=== PATIENT | female | born 1980 | race Caucasian/White ===

== ENCOUNTER 2018-10-01 16:27 | Emergency (ER) | payer OTHER ==
[2018-10-01 17:46] LABS: Absolute Lymphocytes (CBC) 2.8 K/uL (0.7-4.9); Absolute Monocytes 0.7 K/uL (0.1-1.3); Absolute Neutrophil 5.1 K/uL (1.8-8.0); Basophils % 0.3 % (0-1.3); Eosinophils % 1.6 % (0-4.4); Lymphocytes % 31.6 % (15.3-44.8); MCH 29.5 pg (27.0-35.0); MPV 7.7 fL (7.6-11.3); RBC Red Blood Cell Count 4.65 M/uL (3.86-4.86)
[2018-10-01] MEDS ORDERED: MEPERIDINE HCL 25 MG/0.5 ML ONE ×2 (17:52→20:13)
[2018-10-01] MEDS ORDERED: PROMETHAZINE 25 MG/ML VIAL ONE (17:52)
[2018-10-01 17:57] LABS: Urine Blood 2+ (NEG); Urine Glucose NEGATIVE (NEG); Urine Protein NEGATIVE (NEG)
[2018-10-01 18:08] LABS: ALT/SGPT 21 U/L (12-78); AST/SGOT 13 U/L (15-37); Albumin 4.1 g/dL (3.4-5.0); Alkaline Phosphatase 84 U/L (45-117); BUN Blood Urea Nitrogen 11 mg/dL (7-18); Bicarbonate 24 mmol/L (21-32); Bilirubin Direct < 0.1 mg/dL (0-0.2); Bilirubin Total 0.2 mg/dL (0.2-1.0); Glucose Level 99 mg/dL (74-106); Lipase 120 U/L (73-393); Potassium 3.8 mmol/L (3.5-5.1); Protein, Total 7.7 g/dL (6.4-8.2); Sodium Level 138 mmol/L (136-145)
--- NOTE | 2018-10-01 18:13 | RAD REPORT ---
EXAM DESCRIPTION: RAD - Chest Single View - 10/01/2018 6:00 pm CLINICAL HISTORY: DYSPNEA Chest pain. COMPARISON: No comparisons FINDINGS: Portable technique limits examination quality. The lungs are grossly clear. The heart is normal in size. No displaced fractures. IMPRESSION: No acute intrathoracic process suspected.
--- NOTE | 2018-10-01 18:15 | RAD REPORT ---
EXAM DESCRIPTION: US - Abdomen Exam Limited - 10/01/2018 6:08 pm CLINICAL HISTORY: RUQ;Abd pain COMPARISON: No comparisons FINDINGS: The gallbladder demonstrates no gallstones. No pericholecystic fluid or gallbladder wall t hickening. The common bile duct is normal measuring 4 mm. The liver demonstrates no findings of intrahepatic biliary dilatation. IMPRESSION: Unremarkable examination.
--- NOTE | 2018-10-01 19:36 | RAD REPORT ---
EXAM DESCRIPTION: CTAbdomen Pelvis W Contrast - 10/01/2018 7:19 pm CLINICAL HISTORY: Abdominal pain. iv only;Abd pain COMPARISON: No comparisons TECHNIQUE: Biphasic CT imaging of the abdomen and pelvis was performed with 100 ml non-ionic IV cont rast. All CT scans are performed using dose optimization technique as appropriate and may include automated exposure control or mA/KV adjustment according to patient size. FINDINGS: The lung bases are clear. The liver, spleen, pancreas, adrenal glands and kidneys are within normal limits. No bowel obstruction, free air, free fluid or abscess. The appendix is normal. No evidence of signi ficant lymphadenopathy. No suspicious bony findings. IMPRESSION: No acute intra-abdominal or pelvic finding.
--- NOTE | 2018-10-01 20:28 | EDPHYS ---
Physician Documentation [facility] Name: Juliana Parks Age: 38 yrs Sex: Female : 1980 Arrival Date: 10/01/2018 Time: 16:31 Bed 15 Private MD: Ayad Leigh B ED Physician Fidencio Mccloud HPI: 10/01 18:57 This 38 yrs old Female presents to ER via Ambulatory with complaints of jr8 abdominal pain. 18:57 The patient presents with abdominal pain in the right upper quadrant. Onset: The jr8 symptoms/episode began/occurred acutely, today. The symptoms radiate to right back. Associated signs and symptoms: Pertinent positives: nausea. The symptoms are described as stabbing. Modifying factors: The symptoms are alleviated by nothing, the symptoms are aggravated by nothing. Severity of pain: At its worst the pain was moderate in the emergency department the pain is unchanged. The patient has not experienced similar symptoms in the past. The patient has not recently seen a physician. 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 - Social history:: Smoking status: Patient/guardian denies using tobacco. - Ebola Screening: : Patient negative for fever greater than or equal to 101.5 degrees Fahrenheit, and additional compatible Ebola Virus Disease symptoms Patient denies exposure to infectious person Patient denies travel to an Ebola-affected area in the 21 days before illness onset. ROS: 18:57 Eyes: Negative for injury, pain, redness, and discharge, ENT: Negative for injury, jr8 pain, and discharge, Neck: Negative for injury, pain, and swelling, Cardiovascular: Negative for chest pain, palpitations, and edema, Respiratory: Negative for shortness of breath, cough, wheezing, and pleuritic chest pain, Back: Negative for injury and pain, MS/Extremity: Negative for injury and deformity, Skin: Negative for injury, rash, and discoloration, Neuro: Negative for headache, weakness, numbness, tingling, and seizure. 18:57 Abdomen/GI: Positive for abdominal pain, nausea, Negative for vomiting, diarrhea, constipation, abdominal cramps, abdominal distension. Exam: 18:57 Eyes: Pupils equal round and reactive to light, extra-ocular motions intact. Lids and jr8 lashes normal. Conjunctiva and sclera are non-icteric and not injected. Cornea within normal limits. Periorbital areas with no swelling, redness, or edema. ENT: Nares patent. No nasal discharge, no septal abnormalities noted. Tympanic membranes are normal and external auditory canals are clear. Oropharynx with no redness, swelling, or masses, exudates, or evidence of obstruction, uvula midline. Mucous membranes moist. Neck: Trachea midline, no thyromegaly or masses palpated, and no cervical lymphadenopathy. Supple, full range of motion without nuchal rigidity, or vertebral point tenderness. No Meningismus. Cardiovascular: Regular rate and rhythm with a normal S1 and S2. No gallops, murmurs, or rubs. Normal PMI, no JVD. No pulse deficits. Respiratory: Lungs have equal breath sounds bilaterally, clear to auscultation and percussion. No rales, rhonchi or wheezes noted. No increased work of breathing, no retractions or nasal flaring. Back: No spinal tenderness. No costovertebral tenderness. Full range of motion. Skin: Warm, dry with normal turgor. Normal color with no rashes, no lesions, and no evidence of cellulitis. MS/ Extremity: Pulses equal, no cyanosis. Neurovascular intact. Full, normal range of motion. Neuro: Awake and alert, GCS 15, oriented to person, place, time, and situation. Cranial nerves II-XII grossly intact. Motor strength 5/5 in all extremities. Sensory grossly intact. Cerebellar exam normal. Normal gait. 18:57 Abdomen/GI: Inspection: abdomen appears normal, Bowel sounds: active, all quadrants, Palpation: soft, in all quadrants, moderate abdominal tenderness, in the right upper quadrant, mass, is not appreciated, rebound tenderness, is not appreciated, voluntary guarding, is not appreciated, involuntary guarding, is not appreciated, no appreciated organomegaly, Indicators: McBurney's point is tender, Schroeder's sign is negative, Rovsing's sign is negative, Liver: tenderness, is not appreciated. Vital Signs: 17:01 BP 144 / 95; Pulse 81; Resp 24; Temp 97.8(TE); Pulse Ox 98% on R/A; Weight 74.84 kg; ph Height 5 ft. 3 in. (160.02 cm); Pain 6/10; 19:00 BP 112 / 72; Pulse 72; Resp 16; Pulse Ox 96% on R/A; jb4 20:11 BP 116 / 77; Pulse 79; Resp 18; Pulse Ox 98% on R/A; mt 17:01 Body Mass Index 29.23 (74.84 kg, 160.02 cm) ph MDM: 17:15 Patient medically screened. jr8 20:15 Differential diagnosis: bowel obstruction, cholecystitis, Cholelithiasis, jr8 diverticulitis, gastritis, gastroesophageal reflux disease, Irritable bowel syndrome, myocardia ischemia or infarction, non-specific abd pain, pancreatitis, Peptic Ulcer Disease, Perf. Duodenal Ulcer, Perf. Gastric Ulcer, Pyelonephritis, Ureterolithiasis. Data reviewed: vital signs, nurses notes, lab test result(s), EKG, radiologic studies, CT scan, plain films, ultrasound, and as a result, I will discharge patient. Data interpreted: Pulse oximetry: on room air is 98 %. Interpretation: normal. Counseling: I had a detailed discussion with the patient and/or guardian regarding: the historical points, exam findings, and any diagnostic results supporting the discharge/admit diagnosis, lab results, radiology results, the need for outpatient follow up, a pharmacy aide, to return to the emergency department if symptoms worsen or persist or if there are any questions or concerns that arise at home. Response to treatment: the patient's symptoms have markedly improved after treatment. Special discussion: Based on the patient's Hx, exam, and Dx evaluation, there is no indication for emergent surgery or inpatient Tx. It is understood by the patient/guardian that if the Sx's persist or worsen they need to return immediately for re-evaluation. 10/01 17:15 Order name: Basic Metabolic Panel; Complete Time: 18:10/01 17:15 Order name: CBC with Diff; Complete Time: 18:10/01 17:15 Order name: Creatinine for Radiology; Complete Time: 18:10/01 17:15 Order name: Hepatic Function; Complete Time: 18:10/01 17:15 Order name: Lipase; Complete Time: 18:10/01 17:30 Order name: Urine Dipstick--Ancillary (enter results); Complete Time: 18:09 10/01 17:15 Order name: IV Saline Lock; Complete Time: 18:12 [facility] [place] 10/01 17:30 Order name: Urine --Ancillary (enter results); Complete Time: 18:09 10/01 17:31 Order name: XRAY Chest (1 view); Complete Time: 18:25 [facility] [place] 10/01 17:32 Order name: US Abdomen Limited; Complete Time: 18:25 [facility] [place] 10/01 18:57 Order name: CT Abd/Pelvis - W/Contrast; Complete Time: 19:40 [facility] [place] 10/01 17:15 Order name: Labs collected and sent; Complete Time: 18:12 [facility] [place] 10/01 17:15 Order name: Urine Test (obtain specimen); Complete Time: 17:39 [facility] [place] 10/01 17:15 Order name: Urine Dipstick-Ancillary (obtain specimen); Complete Time: 17:39 [facility] [place] 10/01 18:25 Order name: EKG - Nurse/Tech; Complete Time: 18:58 [facility] [place] Administered Medications: 17:52 Drug: Demerol 25 mg Route: IVP; Site: right forearm; rv 21:06 Follow up: Response: No adverse reaction; Pain is decreased jb4 17:52 Drug: Promethazine 12.5 mg Route: IVP; Site: right antecubital; rv 21:05 Follow up: Response: No adverse reaction; Nausea is decreased jb4 20:10 Drug: Demerol 25 mg Route: IVP; Site: right antecubital; jb4 21:05 Follow up: Response: No adverse reaction; Pain is decreased jb4 Disposition: 10/02 07:41 Co-signature as Attending Physician, Fidencio Mccloud MD I agree with the assessment and kdr plan of care. Disposition: 10/01/18 20:28 Discharged to Home. Impression: Right upper quadrant pain. - Condition is Stable. - Discharge Instructions: Abdominal Pain, Adult, Gallbladder Nuclear Scan. - Prescriptions for Tylenol- Codeine #3 300-30 mg Oral Tablet - take 2 tablet by ORAL route every 6 hours As needed; 30 tablet. Zofran 4 mg Oral Tablet - take 1 tablet by ORAL route every 12 hours As needed; 20 tablet. - Medication Reconciliation Form, Thank You Letter, Antibiotic Education, Prescription Opioid Use form. - Follow up: César Ayala MD; When: 2 - 3 days; Reason: Recheck today's complaints, Continuance of care, Re-evaluation by your physician. - Problem is new. - Symptoms have improved. Signatures: Dispatcher [employer] EDMS Fidencio Mccloud MD MD [facility] Brayan Alves PA PA jr8 Kathy Concepcion RN RN Kt Jamison RN RN jb4 Med Young RN RN rv Corrections: (The following items were deleted from the chart) 10/01 21:06 20:28 10/01/2018 20:28 Discharged to Home. Impression: Right upper quadrant pain. jb4 Condition is Stable. Forms are Medication Reconciliation Form, Thank You Letter, Antibiotic Education, Prescription Opioid Use. Follow up: César Ayala; When: 2 - 3 days; Reason: Recheck today's complaints, Continuance of care, Re-evaluation by your physician. Problem is new. Symptoms have improved. jr8
--- NOTE | 2018-10-01 20:28 | ER ---
Nurse's Notes [facility] Name: Juliana Parks Age: 38 yrs Sex: Female : 1980 Arrival Date: 10/01/2018 Time: 16:31 Bed 15 Private MD: Ayad Leigh B Diagnosis: Right upper quadrant pain Presentation: 10/01 17:00 Presenting complaint: Patient states: RUQ pain that began around 1400, radiates around ph to rib area, denies N/V/D or fever. Transition of care: patient was not received from another setting of care. Onset of symptoms was October 01, 2018. Risk Assessment: Do you want to hurt yourself or someone else? Patient reports no desire to harm self or others. Initial Sepsis Screen: Does the patient meet any 2 criteria? No. Patient's initial sepsis screen is negative. Does the patient have a suspected source of infection? No. Patient's initial sepsis screen is negative. Care prior to arrival: None. 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 - Social history:: Smoking status: Patient/guardian denies using tobacco. - Ebola Screening: : Patient negative for fever greater than or equal to 101.5 degrees Fahrenheit, and additional compatible Ebola Virus Disease symptoms Patient denies exposure to infectious person Patient denies travel to an Ebola-affected area in the 21 days before illness onset. Screenin:30 Abuse screen: Denies threats or abuse. Denies injuries from another. Nutritional rv screening: No deficits noted. Tuberculosis screening: No symptoms or risk factors identified. Fall Risk None identified. Assessment: 18:12 General: Appears in no apparent distress. uncomfortable, Behavior is calm, cooperative. rv Pain: Complains of pain in RIGHT SIDE. Neuro: Level of Consciousness is awake, alert, obeys commands, Oriented to person, place, time, situation. Cardiovascular: Capillary refill < 3 seconds. Respiratory: Airway is patent. GI: No signs and/or symptoms were reported involving the gastrointestinal system. : No signs and/or symptoms were reported regarding the genitourinary system. EENT: No signs and/or symptoms were reported regarding the EENT system. Derm: Skin is intact. Musculoskeletal: No signs and/or symptoms reported regarding the musculoskeletal system. 19:15 Reassessment: Patient appears in no apparent distress at this time. Patient and/or jb4 family updated on plan of care and expected duration. Pain level reassessed. Patient is alert, oriented x 3, equal unlabored respirations, skin warm/dry/pink. PT to CT via wheelchair. Cardiovascular: Patient's skin is warm and dry. Respiratory: Airway is patent Respiratory effort is even, unlabored, Respiratory pattern is regular, symmetrical. 20:45 Reassessment: Patient appears in no apparent distress at this time. Patient and/or jb4 family updated on plan of care and expected duration. Pain level reassessed. Patient is alert, oriented x 3, equal unlabored respirations, skin warm/dry/pink. discussed D/c, F/u with pt, Questions answered, denies further questions or concerns. Vital Signs: 17:01 BP 144 / 95; Pulse 81; Resp 24; Temp 97.8(TE); Pulse Ox 98% on R/A; Weight 74.84 kg; ph Height 5 ft. 3 in. (160.02 cm); Pain 6/10; 19:00 BP 112 / 72; Pulse 72; Resp 16; Pulse Ox 96% on R/A; jb4 20:11 BP 116 / 77; Pulse 79; Resp 18; Pulse Ox 98% on R/A; mt 17:01 Body Mass Index 29.23 (74.84 kg, 160.02 cm) ph ED Course: 16:31 Patient arrived in ED. sb2 16:31 Ayad Leigh MD is Private Physician. sb2 17:01 Triage completed. ph 17:02 Arm band placed on. ph 17:15 [facility] jr8 17:15 Fidencio Mccloud MD is Attending Physician. jr8 17:30 Inserted saline lock: 20 gauge in right forearm, using aseptic technique. rv 17:30 Initial lab(s) drawn, by me, sent to lab. rv 18:01 XRAY Chest (1 view) In Process Unspecified. EDMS 18:04 US Abdomen Limited In Process Unspecified. EDMS 18:31 Patient has correct armband on for positive identification. Bed in low position. Call rv light in reach. Side rails up X 1. Adult w/ patient. Pulse ox on. NIBP on. 19:[address] via wheelchair. nj 19:19 CT Abd/Pelvis - W/Contrast In Process Unspecified. EDMS 19:20 CT completed. Patient tolerated procedure well. Patient moved back from CT. nj 19:21 Kt Jamison, RN is Primary Nurse. jb4 20:28 César Ayala MD is Referral Physician. jr8 20:55 No provider procedures requiring assistance completed. IV discontinued, intact, jb4 bleeding controlled. Administered Medications: 17:52 Drug: Demerol 25 mg Route: IVP; Site: right forearm; rv 21:06 Follow up: Response: No adverse reaction; Pain is decreased jb4 17:52 Drug: Promethazine 12.5 mg Route: IVP; Site: right antecubital; rv 21:05 Follow up: Response: No adverse reaction; Nausea is decreased jb4 20:10 Drug: Demerol 25 mg Route: IVP; Site: right antecubital; jb4 21:05 Follow up: Response: No adverse reaction; Pain is decreased jb4 Outcome: 20:28 Discharge ordered by . jr8 20:55 Discharged to home ambulatory, with significant other. jb4 20:55 Condition: stable 20:55 Discharge instructions given to patient, Instructed on discharge instructions, follow up and referral plans. medication usage, Demonstrated understanding of instructions, follow-up care, medications, Prescriptions given X 2. 21:06 Patient left the ED. jb4 Signatures: Dispatcher [employer] EDIA Brayan Alves PA PA jr8 Kathy Concepcion RN RN Kt Jamison, RN RN jb4 Nixon Roach Moriah mt [place], Sheri 2 Med Young RN RN rv
== END 2018-10-01 21:06 | disposition home or self-care (01) ==
LOC: ER 16:27
DX: R10.11 Right upper quadrant pain (principal)
CPT/HCPCS: 36415; 71045; 74177; 76705; 80048; 80076; 81003; 81025; 83690; 85025; 93005; J2175; J2550; Q9967

== ENCOUNTER 2019-07-22 11:13 | Emergency (ER) | payer OTHER ==
[2019-07-22 11:56] LABS: Urine Blood NEGATIVE (NEG); Urine Glucose NEGATIVE (NEG); Urine Protein NEGATIVE (NEG); Urine pH 5.5 (5.0-7.0)
[2019-07-22 12:34] LABS: Absolute Lymphocytes (CBC) 2.1 K/uL (0.7-4.9); Basophils % 0.5 % (0-1.3); Hematocrit 39.5 % (36.0-45.0); Lymphocytes % 33.6 % (15.3-44.8); MPV 7.7 fL (7.6-11.3); RBC Red Blood Cell Count 4.56 M/uL (3.86-4.86)
[2019-07-22 12:53] LABS: Urine Bacteria 20-50 /HPF (<20); Urine Culture Reflex Order REFLEXED; Urine RBC <5 /HPF (NONE SEEN)
[2019-07-22 12:54] LABS: Albumin 4.3 g/dL (3.4-5.0); Bilirubin Direct 0.1 mg/dL (0-0.2); Bilirubin Total 0.3 mg/dL (0.2-1.0); Potassium 3.8 mmol/L (3.5-5.1)
--- NOTE | 2019-07-22 13:25 | RAD REPORT ---
EXAM DESCRIPTION: CTAbdomen Pelvis W Contrast - 07/22/2019 1:15 pm CLINICAL HISTORY: Abdominal pain. ABD PAIN COMPARISON: Abdomen Pelvis W Contrast dated 10/01/2018 TECHNIQUE: Biphasic CT imaging of the abdomen and pelvis was performed with 100 ml non-ionic IV cont rast. All CT scans are performed using dose optimization technique as appropriate and may include automated exposure control or mA/KV adjustment according to patient size. FINDINGS: The lung bases are clear. The liver, spleen, pancreas, adrenal glands and kidneys are within normal limits. No bowel obstruction, free air, free fluid or abscess. The appendix is normal. No evidence of signi ficant lymphadenopathy. No suspicious bony findings. 4 cm right ovarian cyst IMPRESSION: 4 cm right ovarian cyst, likely functional in etiology.
--- NOTE | 2019-07-22 13:30 | ER ---
Nurse's Notes [facility] Name: Juliana Parks Age: 39 yrs Sex: Female : 1980 Arrival Date: 07/22/2019 Time: 11:15 Bed 24 Private MD: Ayad Leigh B Diagnosis: Unspecified ovarian cysts Presentation: 07/22 11:19 Presenting complaint: Patient states: pain to RLQ that is intermittent that began this aa5 morning. Pt also c/o nausea, denies vomiting. Transition of care: patient was not received from another setting of care. Onset of symptoms was July 22, 2019. Risk Assessment: Do you want to hurt yourself or someone else? Patient reports no desire to harm self or others. Initial Sepsis Screen: Does the patient meet any 2 criteria? No. Patient's initial sepsis screen is negative. Does the patient have a suspected source of infection? No. Patient's initial sepsis screen is negative. Care prior to arrival: None. 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 - Social history:: Smoking status: Patient/guardian denies using tobacco. - Ebola Screening: : No symptoms or risks identified at this time. Screenin:56 Abuse screen: Denies threats or abuse. Denies injuries from another. Nutritional ca1 screening: No deficits noted. Tuberculosis screening: No symptoms or risk factors identified. Fall Risk None identified. Assessment: 11:56 General: Appears in no apparent distress. comfortable, Behavior is calm, cooperative, ca1 appropriate for age. Pain: Complains of pain in right lower quadrant Pain currently is 3 out of 10 on a pain scale. at worst was 9 out of 10 on a pain scale. Quality of pain is described as sharp, Pain began early this morning Is intermittent. Neuro: Level of Consciousness is awake, alert, obeys commands, Oriented to person, place, time, situation, Appropriate for age. Cardiovascular: Heart tones S1 S2 present Capillary refill < 3 seconds Patient's skin is warm and dry. Respiratory: Airway is patent Respiratory effort is even, unlabored, Respiratory pattern is regular, symmetrical, Breath sounds are clear bilaterally. GI: Abdomen is round non-distended, Bowel sounds present X 4 quads. Abd is soft X 4 quads Abdomen is tender to palpation in right lower quadrant Reports nausea, Patient currently denies vomiting. : No deficits noted. No signs and/or symptoms were reported regarding the genitourinary system. EENT: No deficits noted. No signs and/or symptoms were reported regarding the EENT system. Derm: Skin is intact, is healthy with good turgor, Skin is pink, warm \T\ dry. Musculoskeletal: Circulation, motion, and sensation intact. Capillary refill < 3 seconds. 12:52 Reassessment: Patient appears in no apparent distress at this time. Patient and/or ca1 family updated on plan of care and expected duration. Pain level reassessed. Patient is alert, oriented x 3, equal unlabored respirations, skin warm/dry/pink. 13:44 Reassessment: Patient appears in no apparent distress at this time. Patient and/or ca1 family updated on plan of care and expected duration. Pain level reassessed. Patient is alert, oriented x 3, equal unlabored respirations, skin warm/dry/pink. Vital Signs: 11:22 BP 119 / 83; Pulse 80; Resp 16 S; Temp 99.2(TE); Pulse Ox 99% on R/A; Weight 78.02 kg aa5 (R); Height 5 ft. 4 in. (162.56 cm) (R); Pain 3/10; 12:34 BP 112 / 76 LA (auto/lg); Pulse 61; Resp 16 S; Pulse Ox 99% ; Pain 2/10; jp3 13:44 BP 120 / 80; Pulse 73; Resp 17 S; Pulse Ox 99% on R/A; ca1 11:22 Body Mass Index 29.52 (78.02 kg, 162.56 cm) aa5 ED Course: 11:15 Patient arrived in ED. am2 11:15 Ayad Leigh MD is Private Physician. am2 11:19 Arm band placed on. aa5 11:20 Triage completed. aa5 11:52 Katrina Fernández, RN is Primary Nurse. ca1 11:56 Patient has correct armband on for positive identification. Bed in low position. Call ca1 light in reach. Side rails up X 1. Pulse ox on. NIBP on. Warm blanket given. 11:56 No provider procedures requiring assistance completed. ca1 11:56 Urine collected: clean catch specimen, clear, trever colored. jp3 11:57 Brayan Alves PA is PHCP. jr8 11:57 Ronaldo Bridges MD is Attending Physician. jr8 12:24 Patient maintains SpO2 saturation greater than 95% on room air. jp3 12:24 Initial lab(s) drawn, by me, sent to lab. Inserted saline lock: 20 gauge in right jp3 antecubital area, using aseptic technique. Blood collected. 13:15 CT Abd/Pelvis - IV Contrast Only In Process Unspecified. EDMS 13:44 IV discontinued, intact, bleeding controlled, No redness/swelling at site. Pressure ca1 dressing applied. Administered Medications: No medications were administered Outcome: 13:29 Discharge ordered by . jr8 13:44 Discharged to home ambulatory. ca1 13:44 Condition: stable 13:44 Discharge instructions given to patient, Instructed on discharge instructions, follow up and referral plans. medication usage, Demonstrated understanding of instructions, follow-up care, medications, Prescriptions given X 1. 13:45 Patient left the ED. ca1 Signatures: Dispatcher [employer] EDMS Ninfa Harvey RN RN aa5 Brayan Alves PA PA jr8 Lucila Burnett am2 Tristian Zhang jp3 Katrina Fernández, RN RN ca1
--- NOTE | 2019-07-22 13:30 | EDPHYS ---
Physician Documentation [facility] Name: Juliana Parks Age: 39 yrs Sex: Female : 1980 Arrival Date: 07/22/2019 Time: 11:15 Bed 24 Private MD: Ayad Leigh B ED Physician Ronaldo Bridges HPI: 07/22 12:20 This 39 yrs old Female presents to ER via Ambulatory with complaints of jr8 abdominal pain. 12:25 Severity of pain: At its worst the pain was moderate in the emergency department the jr8 pain has improved. Pt reports intermitted RLQ pain in abd that has happened three times this morning and is associated with nausea, hot flash, moderate pain. . 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 - Social history:: Smoking status: Patient/guardian denies using tobacco. - Ebola Screening: : No symptoms or risks identified at this time. ROS: 12:26 Constitutional: Negative for fever, chills, and weight loss, Eyes: Negative for injury, jr8 pain, redness, and discharge, ENT: Negative for injury, pain, and discharge, Neck: Negative for injury, pain, and swelling, Cardiovascular: Negative for chest pain, palpitations, and edema, Respiratory: Negative for shortness of breath, cough, wheezing, and pleuritic chest pain, Back: Negative for injury and pain, MS/Extremity: Negative for injury and deformity, Neuro: Negative for headache, weakness, numbness, tingling, and seizure. 12:26 Abdomen/GI: Positive for abdominal pain, nausea. Exam: 12:26 Constitutional: This is a well developed, well nourished patient who is awake, alert, jr8 and in no acute distress. Head/Face: Normocephalic, atraumatic. Eyes: Pupils equal round and reactive to light, extra-ocular motions intact. Lids and lashes normal. Conjunctiva and sclera are non-icteric and not injected. Cornea within normal limits. Periorbital areas with no swelling, redness, or edema. ENT: Nares patent. No nasal discharge, no septal abnormalities noted. Tympanic membranes are normal and external auditory canals are clear. Oropharynx with no redness, swelling, or masses, exudates, or evidence of obstruction, uvula midline. Mucous membranes moist. Neck: Trachea midline, no thyromegaly or masses palpated, and no cervical lymphadenopathy. Supple, full range of motion without nuchal rigidity, or vertebral point tenderness. No Meningismus. Chest/axilla: Normal chest wall appearance and motion. Nontender with no deformity. No lesions are appreciated. Cardiovascular: Regular rate and rhythm with a normal S1 and S2. No gallops, murmurs, or rubs. Normal PMI, no JVD. No pulse deficits. Respiratory: Lungs have equal breath sounds bilaterally, clear to auscultation and percussion. No rales, rhonchi or wheezes noted. No increased work of breathing, no retractions or nasal flaring. Back: No spinal tenderness. No costovertebral tenderness. Full range of motion. MS/ Extremity: Pulses equal, no cyanosis. Neurovascular intact. Full, normal range of motion. Neuro: Awake and alert, GCS 15, oriented to person, place, time, and situation. Cranial nerves II-XII grossly intact. Motor strength 5/5 in all extremities. Sensory grossly intact. Cerebellar exam normal. Normal gait. 12:26 Abdomen/GI: Inspection: abdomen appears normal, obese Bowel sounds: normal, in all quadrants, Palpation: soft, in all quadrants, moderate abdominal tenderness, in the right lower quadrant, Indicators: McBurney's point is tender, Schroeder's sign is negative, Rovsing's sign is negative, Obturator sign is negative, Psoas sign is negative. Vital Signs: 11:22 BP 119 / 83; Pulse 80; Resp 16 S; Temp 99.2(TE); Pulse Ox 99% on R/A; Weight 78.02 kg aa5 (R); Height 5 ft. 4 in. (162.56 cm) (R); Pain 3/10; 12:34 BP 112 / 76 LA (auto/lg); Pulse 61; Resp 16 S; Pulse Ox 99% ; Pain 2/10; jp3 13:44 BP 120 / 80; Pulse 73; Resp 17 S; Pulse Ox 99% on R/A; ca1 11:22 Body Mass Index 29.52 (78.02 kg, 162.56 cm) aa5 MDM: 12:08 Patient medically screened. gaby 13:28 Data reviewed: vital signs, nurses notes, lab test result(s), radiologic studies, CT jr8 scan, and as a result, I will discharge patient. Data interpreted: Pulse oximetry: on room air is 99 %. Interpretation: normal. Counseling: I had a detailed discussion with the patient and/or guardian regarding: the historical points, exam findings, and any diagnostic results supporting the discharge/admit diagnosis, lab results, radiology results, the need for outpatient follow up, an OB/Gyne specialist, to return to the emergency department if symptoms worsen or persist or if there are any questions or concerns that arise at home. ED course: Patient currently in no pain. CT reveals ovarian cyst where patients previous pain is. Hemodynamically stable low to no likely haider of torsion based on presentation and exam. Return precautions give. D/C to see gynecology. . 07/22 11:43 Order name: Urine Dipstick--Ancillary (enter results); Complete Time: 11:57 gm 07/22 11:43 Order name: Urine --Ancillary (enter results); Complete Time: 11:57 gm 07/22 11:57 Order name: Urine Microscopic Only; Complete Time: 12:59 07/22 12:15 Order name: Basic Metabolic Panel; Complete Time: 12:59 07/22 12:15 Order name: CBC with Diff; Complete Time: 12:39 07/22 12:15 Order name: Creatinine for Radiology; Complete Time: 12:59 07/22 12:15 Order name: Hepatic Function; Complete Time: 12:59 8 07/22 12:15 Order name: Lipase; Complete Time: 12:59 07/22 12:15 Order name: IV Saline Lock; Complete Time: 12:33 07/22 12:15 Order name: Labs collected and sent; Complete Time: 12:33 07/22 12:29 Order name: CT Abd/Pelvis - IV Contrast Only; Complete Time: 13:27 jr8 07/22 12:55 Order name: Urine Culture EDMS Administered Medications: No medications were administered Disposition: 07/23 07:37 Co-signature as Attending Physician, Ronaldo Bridges MD I agree with the assessment and [facility] plan of care. Disposition: 07/22/19 13:29 Discharged to Home. Impression: Unspecified ovarian cysts. - Condition is Stable. - Discharge Instructions: Ovarian Cyst. - Prescriptions for Macrobid 100 mg Oral Capsule - take 1 capsule by ORAL route every 12 hours for 7 days; 14 capsule. - Medication Reconciliation Form, Thank You Letter, Antibiotic Education, Prescription Opioid Use form. - Follow up: Private Physician; When: 2 - 3 days; Reason: Recheck today's complaints, Continuance of care, Re-evaluation by your physician. - Problem is new. - Symptoms have improved. Signatures: Dispatcher [employer]W[facility] Ronaldo Bridges MD MD cha Calderon, Audri, RN RN aa5 Brayan Alves PA PA jr8 Katrina Fernández RN RN ca1 Corrections: (The following items were deleted from the chart) 07/22 13:45 13:29 07/22/2019 13:29 Discharged to Home. Impression: Unspecified ovarian cysts. ca1 Condition is Stable. Forms are Medication Reconciliation Form, Thank You Letter, Antibiotic Education, Prescription Opioid Use. Follow up: Private Physician; When: 2 - 3 days; Reason: Recheck today's complaints, Continuance of care, Re-evaluation by your physician. Problem is new. Symptoms have improved. jr8
[2019-07-22 13:55] VITALS: TEMP 99.2; O2SAT 99
[2019-07-22 13:58] VITALS: BP 120/80
== END 2019-07-22 13:45 | disposition home or self-care (01) ==
LOC: ER 11:13
DX: N83.209 Unspecified ovarian cyst, unspecified side (principal); E78.5 Hyperlipidemia, unspecified; F32.9 Major depressive disorder, single episode, unspecified
CPT/HCPCS: 87088; 85025; 87086; 80048; 36415; 81025; 80076; 83690; 74177; Q9967; 81003; 81015; 99284